=== PATIENT | female | born 1930 | race Caucasian/White ===

== ENCOUNTER → 2018-10-27 | Outpatient (CLI) | payer OTHER ==
[~2018-10-27] MED LIST: ASPI81EC PO; CETI5; GLUCOSE PO; LEVSOD50; LEVSOD75; LEVSOD75 PO; LORA.5; METO25ER; NITR.3SL SL
== END | disposition home or self-care (01) ==
LOC: PLD 07:32 → LAB SHORT 07:32
DX: D48.5 Neoplasm of uncertain behavior of skin (principal)
CPT/HCPCS: 88305